=== PATIENT | female | born 1995 | race Caucasian/White ===

== ENCOUNTER 2019-06-25 10:00 | Emergency (ER) | payer OTHER ==
[~2019-06-25] VITALS: Ht 160 cm; Wt 113.0 kg
[2019-06-25 10:13] LABS: URINE BILIRUBIN NEGATIVE (Negative); URINE BLOOD 3+ (Negative); URINE CLARITY CLEAR; URINE COLOR YELLOW; URINE GLUCOSE-RANDOM NEGATIVE (Negative); URINE KETONES NEGATIVE (Negative); URINE LEUKOCYTES-REFLEX NEGATIVE (Negative); URINE NITRITE-REFLEX NEGATIVE (Negative); URINE PROTEIN 1+ (Negative); URINE UROBILINOGEN 0.2 E.U./dl (0.2-1.0)
[2019-06-25 10:23] LABS: BACTERIA-REFLEX 1-9 Few /HPF (None Seen); CASTS None Seen /LPF (None Seen); CRYSTALS None Seen /LPF (None Seen); MUCUS 0-3 Light strn/LPF (None Seen); SQUAMOUS 0-3 Few /LPF (0-3); URINE RBC >20 Many /HPF (0-2); URINE WBC-REFLEX 0-5 Rare /HPF (0-5)
[2019-06-25] MEDS ORDERED: LAMOTRIGINE100 M1 PO (10:24)
[2019-06-25] MEDS ORDERED: ZOLOFT50 M1 PO (10:25)
[2019-06-25 10:48] LABS: ABSOLUTE BASOPHILS 0.1 thou/uL (0.0-0.2); ABSOLUTE EOSINOPHILS 0.1 thou/uL (0.0-0.7); ABSOLUTE LYMPHOCYTES 2.5 thou/uL (0.8-5.3); ABSOLUTE MONOCYTES 0.9 thou/uL (0.0-1.2); BASOPHILS 0.5 %; EOSINOPHILS 1.1 %; HEMATOCRIT 38.4 % (37.0-47.0); HEMOGLOBIN 13.1 gm/dL (12.0-15.0); LYMPHOCYTES 21.5 %; MCH 29.2 pg (26.0-34.0); MCHC 34.1 g/dL (28.0-37.0); MCV 85.6 fL (80.0-100.0); MONOCYTES 7.9 %; MPV 9.8 fl. (7.2-11.1); NUCLEATED RBCS 0 /100WBC; PLATELET COUNT* 274 thou/uL (150-400); RBC 4.49 mil/uL (4.20-5.00); RDW-CV 14.3 % (10.5-14.5); WBC 11.6 thou/uL (4.0-11.0)
[2019-06-25 10:53] LABS: CALCIUM 9.1 mg/dL (8.5-10.1); POTASSIUM 3.3 mmol/L (3.5-5.1)
[2019-06-25 10:54] LABS: ALBUMIN 3.5 g/dL (3.4-5.0); TOTAL BILIRUBIN 0.4 mg/dL (<0.1-1.0); TOTAL PROTEIN 7.1 g/dL (6.4-8.2)
[2019-06-25] MEDS ORDERED: IBUPROFEN 800800 M1 PO (12:39)
[2019-06-25] MEDS ORDERED: NORCO 5-325 TA1 EAC1 PO (12:39)
[2019-06-25] MEDS ORDERED: FLOMAX0.4 MG PO (12:39)
[2019-06-25] MEDS ORDERED: ONDANSETRON HCL4 M2 PO (12:39)
[2019-06-25 13:20] VITALS: BP 126/75
== END 2019-06-25 13:53 | disposition home or self-care (01) ==
LOC: M.ERS 10:00
PROVIDERS: Nurse Practitioner Family
DX: N20.1 Calculus of ureter (principal); N83.201 Unspecified ovarian cyst, right side; Z87.442 Personal history of urinary calculi

== ENCOUNTER 2019-07-29 13:37 | Inpatient (IN) | payer OTHER ==
[~2019-07-29] VITALS: Ht 160 cm; Wt 113.4 kg
[~2019-07-29 13:37] MED LIST: FLOMAX0.4 MG PO; IBUPROFEN 800800 M1 PO; LAMOTRIGINE100 M1 PO; NORCO 5-325 TA1 EAC1 PO; ONDANSETRON HCL4 M2 PO; ZOLOFT50 M1 PO
[2019-07-29 13:59] VITALS: BP 140/103
[2019-07-29 14:11] LABS: URINE BILIRUBIN NEGATIVE (Negative); URINE BLOOD 3+ (Negative); URINE CLARITY CLEAR; URINE COLOR YELLOW; URINE GLUCOSE-RANDOM NEGATIVE (Negative); URINE KETONES TRACE (Negative); URINE LEUKOCYTES-REFLEX NEGATIVE (Negative); URINE NITRITE-REFLEX NEGATIVE (Negative); URINE PROTEIN TRACE (Negative); URINE SPECIFIC GRAVITY >= 1.030 (1.005-1.030); URINE UROBILINOGEN 0.2 E.U./dl (0.2-1.0)
[2019-07-29 14:16] LABS: CASTS None Seen /LPF (None Seen); CRYSTALS None Seen /LPF (None Seen); SQUAMOUS 0-3 Few /LPF (0-3); URINE RBC 3-10 Few /HPF (0-2); URINE WBC-REFLEX 6-15 Few /HPF (0-5)
[2019-07-29 14:38] LABS: ABSOLUTE BASOPHILS 0.1 thou/uL (0.0-0.2); ABSOLUTE EOSINOPHILS 0.1 thou/uL (0.0-0.7); ABSOLUTE MONOCYTES 0.9 thou/uL (0.0-1.2); ABSOLUTE NEUTROPHILS 7.5 thou/uL (1.6-8.1); BASOPHILS 0.6 %; HEMATOCRIT 39.7 % (37.0-47.0); HEMOGLOBIN 13.6 gm/dL (12.0-15.0); LYMPHOCYTES 19.4 %; MCH 29.4 pg (26.0-34.0); MCHC 34.2 g/dL (28.0-37.0); MONOCYTES 8.1 %; MPV 9.9 fl. (7.2-11.1); NUCLEATED RBCS 0 /100WBC; PLATELET COUNT* 241 thou/uL (150-400); POLYS 70.9 %; RBC 4.62 mil/uL (4.20-5.00); RDW-CV 14.2 % (10.5-14.5); WBC 10.5 thou/uL (4.0-11.0)
[2019-07-29 14:46] LABS: CALCIUM 9.3 mg/dL (8.5-10.1); CREATININE 0.9 mg/dL (0.6-1.3); POTASSIUM 3.6 mmol/L (3.5-5.1)
[2019-07-29 14:50] LABS: ALBUMIN 3.8 g/dL (3.4-5.0); TOTAL BILIRUBIN 0.2 mg/dL (<0.1-1.0); TOTAL PROTEIN 7.6 g/dL (6.4-8.2)
[2019-07-29 17:17] VITALS: BP 163/88
[2019-07-29 17:59] VITALS: BP 117/69
[2019-07-29 21:00] VITALS: BP 111/65
[2019-07-30 06:01] VITALS: BP 111/65
[2019-07-30 08:04] VITALS: BP 112/71
[2019-07-30 12:40] VITALS: BP 112/71
[2019-07-30] MEDS ORDERED: CIPRO500 M1 PO (14:09)
[2019-07-30] MEDS ORDERED: OXYBUTYNIN 5 MG5 M2 PO (14:10)
[2019-07-30] MEDS ORDERED: PHENAZOPYRIDIN200 M2 PO (14:11)
[2019-07-30] MEDS ORDERED: FLOMAX0.4 MG PO (14:12)
[2019-07-30 15:30] VITALS: BP 112/46
--- NOTE | 2019-07-31 07:52 | OP ---
[address] [address] OPERATIVE REPORT Name: JACLYN PENALOZA Room: [address] [place] .R.#: [id number] Admission: 07/29/19 Attend Phys: Malka Anderson Discharge: 07/30/19 Date of : 89 Report #: [id number] THIS REPORT FOR: //name// CC: [facility] physician/PCP Malka Wiley DATE OF SERVICE: 07/30/2019 UROLOGY OPERATIVE NOTE PREOPERATIVE DIAGNOSIS: Left nephrolithiasis. POSTOPERATIVE DIAGNOSIS: Left nephrolithiasis. PROCEDURES PERFORMED: 1. Cystoscopy. 2. Left retrograde pyelogram. 3. Left ureteroscopy with laser lithotripsy and stone basket extraction. 4. Left ureteral stent placement. STAFF: Dr. Stanley Arambula. COMPLICATIONS: None. DRAINS: 6 x 24 left ureteral stent. SPECIMENS: Left ureteral stone. INDICATIONS: The patient is a 23-year-old female with a history of nephrolithiasis who presented to the ER with left-sided flank pain. A CT demonstrated a 6-7 mm left UVJ stone. She had a prior CT one month ago that demonstrated the stone to be proximal. After thorough discussion, decision was made to proceed with ureteroscopy. DESCRIPTION OF PROCEDURE: On 07/30/2019, after consent was obtained, the patient was taken to the operating room and placed in supine position. She was then placed under general anesthesia. She received preoperative IV Cipro for antibiotic coverage. She was then placed in dorsal lithotomy and her genitals were prepped and draped in normal sterile fashion. Next, I began the procedure by inserting 22.5-Cambodian rigid resectoscope via the visual obturator. I then identified the left ureteral orifice. This was cannulated with a 5-Cambodian open ended stent. A retrograde pyelogram demonstrated normal caliber ureter with some mild hydronephrosis. At this point, sensor wire was passed up in the upper pole under fluoroscopic guidance. I then went through the cystoscope and inserted a semirigid ureteroscope. I was able to pass up alongside the sensor wire into the distal ureter where I readily identified a stone. A [address] [place] [address] OPERATIVE REPORT Name: JACLYN PENALOZA Room: [address]#: [id number] Admission: 07/29/19 Attend Phys: Malka Anderson Discharge: 07/30/19 Date of : 89 Report #: [id number] laser fiber was utilized to break the stone up into three smaller fragments. A 1.9 nitinol basket was then utilized to grasp each of these stone fragments and pulled these out of the urethral meatus without difficulty. Following this, I made one final pass of the ureteroscope up to the level of the UPJ. There is no evidence of any further stone burden. I then selected a 6 x 24 stent which passed up over the sensor wire into the renal pelvis under fluoroscopic guidance, had a good coil in the urinary bladder under direct visual guidance. The patient's bladder was emptied. She was then awakened from anesthesia. <ELECTRONICALLY SIGNED> By: Stanley Arambula MD 07/31/19 [id number] Arambula MD /nt
== END 2019-07-30 16:03 | disposition home or self-care (01) | DRG 660 ==
LOC: M.ERS 13:37 → M.TBA-ER 16:05 → M.ORTHSURG 16:05
PROVIDERS: Nurse Practitioner Family; ADMIT Family Medicine
PROC: 0TC78ZZ Extirpation of Matter from Left Ureter, Via Natural or Artificial Opening Endoscopic (ICD-10-PCS; principal; 2019-07-30)
PROC: 0T778DZ Dilation of Left Ureter with Intraluminal Device, Via Natural or Artificial Opening Endoscopic (ICD-10-PCS; principal; 2019-07-30)
PROC: BT1F1ZZ Fluoroscopy of Left Kidney, Ureter and Bladder using Low Osmolar Contrast (ICD-10-PCS; principal; 2019-07-30)
DX: N13.6 Pyonephrosis (principal); Z68.41 Body mass index [BMI] 40.0-44.9, adult; F17.210 Nicotine dependence, cigarettes, uncomplicated; E66.9 Obesity, unspecified; Z84.1 Family history of disorders of kidney and ureter; Z79.899 Other long term (current) drug therapy

== ENCOUNTER 2019-07-31 10:07 | Emergency (ER) | payer OTHER ==
[~2019-07-31] VITALS: Ht 160 cm; Wt 113.4 kg
[~2019-07-31 10:07] MED LIST changes: +CIPRO500 M1 PO; +OXYBUTYNIN 5 MG5 M2 PO; +PHENAZOPYRIDIN200 M2 PO
[2019-07-31 10:38] LABS: ABSOLUTE BASOPHILS 0.1 thou/uL (0.0-0.2); ABSOLUTE LYMPHOCYTES 2.6 thou/uL (0.8-5.3); ABSOLUTE MONOCYTES 1.1 thou/uL (0.0-1.2); ABSOLUTE NEUTROPHILS 9.8 thou/uL (1.6-8.1); BASOPHILS 0.8 %; EOSINOPHILS 0.3 %; HEMATOCRIT 38.8 % (37.0-47.0); HEMOGLOBIN 13.2 gm/dL (12.0-15.0); LYMPHOCYTES 18.9 %; MCH 29.3 pg (26.0-34.0); MCHC 34.1 g/dL (28.0-37.0); MONOCYTES 8.3 %; MPV 9.7 fl. (7.2-11.1); NUCLEATED RBCS 0 /100WBC; PLATELET COUNT* 246 thou/uL (150-400); POLYS 71.7 %; RBC 4.51 mil/uL (4.20-5.00); RDW-CV 13.8 % (10.5-14.5); WBC 13.7 thou/uL (4.0-11.0)
[2019-07-31 10:38] LABS: URINE BILIRUBIN NEGATIVE (Negative); URINE BLOOD 3+ (Negative); URINE CLARITY TURBID; URINE COLOR RED; URINE GLUCOSE-RANDOM NEGATIVE (Negative); URINE KETONES NEGATIVE (Negative); URINE NITRITE-REFLEX NEGATIVE (Negative); URINE PROTEIN 3+ (Negative); URINE SPECIFIC GRAVITY >= 1.030 (1.005-1.030); URINE UROBILINOGEN 0.2 E.U./dl (0.2-1.0)
[2019-07-31 10:46] LABS: URINE LEUKOCYTES-REFLEX 2+ (Negative)
[2019-07-31 10:48] LABS: BACTERIA-REFLEX 1-9 Few /HPF (None Seen); CASTS None Seen /LPF (None Seen); CRYSTALS None Seen /LPF (None Seen); MUCUS 0-3 Light strn/LPF (None Seen); SQUAMOUS 0-3 Few /LPF (0-3); URINE RBC >20 Many /HPF (0-2)
[2019-07-31 10:59] LABS: CALCIUM 9.7 mg/dL (8.5-10.1); CREATININE 0.8 mg/dL (0.6-1.3); POTASSIUM 3.3 mmol/L (3.5-5.1)
[2019-07-31 11:03] LABS: ALBUMIN 3.7 g/dL (3.4-5.0); TOTAL BILIRUBIN 0.3 mg/dL (<0.1-1.0); TOTAL PROTEIN 7.4 g/dL (6.4-8.2)
[2019-07-31 13:35] VITALS: BP 117/65
== END 2019-07-31 13:36 | disposition home or self-care (01) ==
LOC: M.ERS 10:07
PROVIDERS: Physician Assistant
DX: N39.0 Urinary tract infection, site not specified (principal); G89.18 Other acute postprocedural pain; Z87.442 Personal history of urinary calculi